=== PATIENT | female | born 1995 | race Caucasian/White ===

== ENCOUNTER 2024-12-10 12:40 | Outpatient (CLI) | payer OTHER, SELFPAY ==
--- NOTE | 2024-12-10 13:00 | CRLHL7_ITS ---
For Patients: As a result of the Cures Act, medical imaging exams and procedure reports are released immediately into your electronic medical record. You may view this report before your referring provider. If you have questions, please contact your health care provider. LMP: 10/06/2024. LIZY by LMP: 07/13/2025. . P: 2. Single. INDICATION: Dating and viability. FINDINGS: CR: 2.8 cm 9w 4d. LIZY: 07/11/2025. FHR: 178 bpm. Gestational sac: 3.7 cm, appears within normal limits. Yolk sac: 3.2 mm, appears within normal limits. Right ovary: Within normal limits 2.2 x 2.25 x 1.8 cm. Left ovary: Not visualized. IMPRESSION: 1. Single living intrauterine with sonographic gestational age 9 weeks 4 days and sonographic due date 07/11/2025. 2. Right inferior subchorionic hemorrhage measures 3.9 x 1.2 x 1.6 cm. Mahesh Booth M.D. Diagnostic Radiologist [email or web address] TIGIST/priyanka / bM/Dictated by: Mahesh Booth MD @ 12/10/2024 1:43:00 PM (Electronically Signed)
== END 2024-12-10 12:41 | disposition home or self-care (01) ==
LOC: US 12:45
PROVIDERS: Visit Provider Advanced Practice Midwife
DX: Z34.91 Encounter for supervision of normal pregnancy, unspecified, first trimester (principal); O20.9 Hemorrhage in early pregnancy, unspecified; Z3A.09 9 weeks gestation of pregnancy
CPT/HCPCS: 76817; 83021; 86592; 86703; 86704; 86706; 86762; 86787; 86803; 86850; 86900; 86901; 87086; 87340

== ENCOUNTER 2024-12-19 10:15 | Emergency (ER) | payer OTHER, SELFPAY ==
--- OUTSIDE RECORDS SUMMARY | 2024-12-19 10:17 | XMS_ITS ---
Author Organization [facility] Address [address] [place] [address] Care Team Providers Care Flying Squad Salesperson Name Role Phone Unavailable Unavailable Unavailable Surgery Details Not on file Complications Check Surgery Details section. Procedure Estimated Blood Loss Check Surgery Details section. Procedure Findings Check Surgery Details section. Procedure Specimens Taken Check Surgery Details section.
--- OUTSIDE RECORDS SUMMARY | 2024-12-19 10:17 | XMS_ITS | Continuity of Care Document ---
Author Organization [facility] Address [address] [address] [place] [address] Phone Care Team Providers Care Lead Java Programmer Name Role Phone Tre DIETRICH, Dnenis Unavailable Unavailable Allergies, Adverse Reactions, Alerts Substance Reaction Status Criticality No Known Allergies Active No Inform ation Medications Medication Instructions Dosage Effective Dates (start - stop) Status Comments norethindrone (contraceptive) 0.35 mg tablet take 1 tablet by oral route every day 1.00 tablet - Active Procedures Procedure Date Colonoscopy Flex; W/bx 1/mx Level Iv-surg Path Gross/micro Advance Directives Directive Yes / No Effective Date File Name No Information Encounters Encounter Description Practice Location Reason(s) For Visit Diagnoses Date Provider Providers Copied on Encounter [facility], [address] [address], [place], [place], [id number], [place] tel:[phone] [facility] No Information 2 Tre Recinosahim. [address] [facility], [facility] [address], [place], [place], [id number] , [place]. tel:[phone] [facility], [address] [address], [place], [place], [id number], [place] tel:[phone] [facility] Altered bowel habitsUnspecified abdominal painOther specified diseases of intestineChange in bowel habit 2 Tre Dennis. [address] [facility], [facility] [address], [place], [place], [id number] , [place]. tel:[phone] Referring Provider: Judi NEWTON R, [address], [place], [address]. tel:[phone] [facility], [address] [address], [place], [id number], [place] tel:[phone] [facility] No Information 2 Link MD Jay. [address] [facility], [address], [place], [id number] , [place]. tel:[phone] Family History Family Member Type Diagnosis Age At Onset No Information Immunizations Vaccine Date Status Comments tetanus toxoid, reduced diphtheria toxoid, and acellular pertussis vaccine, adsorbed administered Note: [facility] b i-directional interface ; Source: Other Registry Novel [id number], all formulations administered Note: [facility] bi-direct ional interface ; Source: Other Registry Influenza, seasonal, injectable administe red Note: [facility] bi- directional interface ; Source: Other Registry Payers Payer name Insurance type Covered democrat ID Authormarcosa deya(s) [employer] Of [facility] [id number] Social History Type Description Quantity Date Captured Comments Sex Female Smoking Status No Information Chief Complaint And Reason For Visit No Information Reason For Referral Reason For Referral No Information History Of Present Illness Encounter Date Complaint History Of Prese nt Illness No Information Functional Status Date Functional Assessmen t No Information Instructions Date Instruction Additional Infor chacorta Colon Cancer Prevention Related to Altered bowel habits Assessments Type Assessment Date No Information Patient Care Teams Name Effective Dates (start - stop) Status Members No Information
--- OUTSIDE RECORDS SUMMARY | 2024-12-19 10:17 | XMS_ITS | Referral Summary ---
Author Organization [facility] Address [address] [place] [address] Care Team Providers Care Jute Bag Clipper Name Role Phone Elsewhere, Pcp Primary Care Provider Unavailabl e Source Comments Patient records contain information from all sites at [facility]. For routine questions regarding patient records, call [phone] during business hours, M-F 8:00 AM - 5:00 PM Central Time. Record requests for emergency care only can be directed to [phone] at any time.[facility] Allergies No known active allergies Medications phenazopyridine (PYRIDIUM) 200 mg tablet Take 1 tablet (200 mg total) by mouth 3 (three) times a day as needed for painful urination. 6 tablet 06/13/2023 Active Active Problems Problem Noted Date Diagnosed Date Endometriosis 11/09/2021 Social History Tobacco Use Types Packs/Day Years Used Date Smoking Tobacco: Never Assessed PHQ-2 Answer Date Recorded PHQ-2 Score 0 06/10/2024 Depression Answer Date Recor ded PHQ-9 Total Score (max 27) 0 06/10 Dental Answer Date Recorded Dental: Regular Dentist Unknown 06/13/20 23 Comments Unknown Sex and Gender Information Value Date Recorded Sex Assigned at Not on file Legal Sex Female 8:42 AM CDT Gender Identity Not on file Sexual Orientation Not on file Last Filed Vital Signs Vital Sign Reading Time Taken Comments Blood Pressure 118/75 06/13/2023 9:34 PM CDT Pulse 72 06/13/2023 11:30 PM CDT Temperature 36.8 C (98.2 F) 06/13/2023 9:34 PM CDT Respiratory Rate 16 06/13/2023 11:30 PM CDT Oxygen Saturation 100% 06/13/2023 11:30 PM CDT Inhaled Oxygen Concentration - - Weight - - Height - - Body Mass Index - - Plan of Treatment Not on file Insurance [employer] Care Teams Jute Bag Clipper Relationship Specialty Start Date End Date Elsewhere, Pcp PCP - General Internal Medicine 06/13/23
--- OUTSIDE RECORDS SUMMARY | 2024-12-19 10:17 | XMS_ITS | Clinical Summary ---
Author Organization [facility] Address [place], [place] [address] Care Team Providers Care Automobile Radiator Mechanic Name Role Phone Judi Jordan Primary Care Provider Linda Joe CNM Unavailable [phone] Allergies No known active allergies Medications acetaminophen (TYLENOL) 325 mg tabletIndicatio ns: (normal spontaneous vaginal delivery) Take 2 Tablets (650 mg) by mouth every 6 hours if needed for Pain. Max acetaminophen dose: 4000mg in 24 hrs. 0 3 Active ibuprofen (ADVIL; MOTRIN) 600 mg tabletIndicatio ns: (normal spontaneous vaginal delivery) Take 1 Tablet (600 mg) by mouth every 6 hours if needed for Pain. Maximum of 3200 mg in 24 hours. 0 3 Active norethindrone, Contraceptive, (MICRONOR, 28,) 0.35 mg tabletIndicatio ns: control counseling Take 1 Tablet (0.35 mg) by mouth once daily. 84 Tablet 3 3 Active Active Problems Problem Noted Date Diagnosed Date Endometriosis 11/09/2021 Chronic midline low back pain without sciatica 1 01/10/2021 Chronic constipation 11/09/2021 Obesity (BMI 30.0-34.9) 12/30/2017 Resolved Problems Problem Noted Date Diagnosed Date Resolved Date (normal spontaneous vaginal delivery) 05/25/2023 07/09/2023 Single liveborn 05/25/2023 07/09/2023 Second degree perineal lacer ation during delivery 05/25/2023 07/09/2023 [facility] Preferences 04/14/2023 06/09/2023 Overview (05/21/2023): & Preferences Scheduled for post-dates IOL on 05/23 evening w/ Florian (Vianney Joe on-call). Partner: Portillo Klein'cecily support person(s): AUDIE sex: Girl! Goals / priorities: Hydrotherapy Fears / anxieties: Partner gets woozy during medical procedures Water : Declines GBS: IV in labor: Not immediately Labs at admission Prior to epidural Pain plan: epidural Help catch: Considering mirror Cut cord: Maybe Bertha Placenta: Considering keeping it Baby meds: Erithromycin: no Vitamin K: yes Hep B: no Other: _ Pre Coder: [facility] [place] Infant feeding: Breast/ pump and bottle Pump? _has Circumcision: NA control: Maternal PP immunizations: Supervision of high risk pre gnancy, antepartum 11/11/2022 06/09/2023 Overview (05/24/2023): [facility] - at [place] PLAN OF CARE: High Risk? YES - BMI>30 ~Transfer of care, records not available so uncertain about early GCT ~MPP consult placed for level II ultrasound -Return to primary provider for continued care. -No alterations in the delivery plan are necessary. -No medication changes are indicated. -No BPPs or NSTs suggested. -No further ultrasounds are necessary for the present indication 27 y.o. FOB: Portillo Other children: first sex: COURSE: - Final Estimated Date of Delivery: Estimated Date of Delivery: 05/15/23 by LMP and ultrasound - care transferred to [facility] at 13w4d - pre-gravid BMI 33, goal 11-20 pounds - early GDM screen: First visit at [facility] - aspirin 81 mg for pre-E risk: YES - maternal carrier screens: declined - genetic screens: declined - immunizations: flu [], tdap [], other [] - accepting of blood products: YES - hx any HSV: Denies Depression screening: Imagin. Early ultrasound 2. Anatomy Scan: Intrauterine at 19w 1d. presentation is Transverse, head to maternal left. EFW 297 grams, percentile: 63. Normal Deepest Vertical Pocket of amniotic fluid: 4.84 cm. Placental location: Posterior. There is no evidence of placenta previa. The cervical length is 4.5 cm. 3. Others? Labs: PENDING RECORDS - ABO/RH: _ - GC/CT: - HBG: _ - PLT: _ - HCV: _ - GCT: _ - GBS: _ Immunizations Name Administration Dates Next Due Influenza A (H1N1), Inactivated 10/24/2016 Influenza, IIV3 (Age >=3 years) 01/05/2007 MMR 05/26/2023 Tdap 03/31/2023,01/28/2017 Family History Medical History Relation Name Comments Good Health Brother x3 Good Health Father Lung cancer Maternal Grandmother Small C ell Lung cancer Maternal Uncle Asthma Mother Alcoholism Paternal Grandfather Cancer-breast No Family History Cancer-colon No Family History Cancer-ovarian No Family History Cancer-prostate No Family History Diabetes No Family History Relation Name Status Comments Brother x3 Alive Father Alive Maternal Aunt Maternal Grandfather Alive Maternal Grandmother Maternal Uncle Mother Alive Paternal Grandfather Alive Paternal Grandmother Alive Social History Tobacco Use Types Packs/Day Years Used Date Smoking Tobacco: Never Smokeless Tobacco: Never Tobacco Cessation:Counseling Given: Not Answered Alcohol Use Standard Drinks/Week Comments Not Currently 1 (1 standard drink = 0.6 oz pur e alcohol) PHQ-2 Answer Date Recorded PHQ-2 TOTAL SCORE 0 07/09/2023 Social Connections Answer Date Recorded Frequency of Communication with Friends and Fami ly Not on file 11/20/2021 Financial Resource Strain Answer Date R ecorded Difficulty of Paying Living Expenses Not on file 11/20/2021 Difficulty of Paying Living Expenses Not on file 11/20/2021 Comments No Sex and Gender Information Value Date Recorded Sex Assigned at Not on file Legal Sex Female 1:51 PM CDT Gender Identity Not on file Sexual Orientation Not on file 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 Not on file Not on file Not on file Obstetrics History Para Term AB IAB SAB Ectopic Multiple Livin g Live Births 1 1 1 0 0 0 0 0 0 1 1 Date Outcome GA Total Labor Labor/2nd/3rd Weight Sex Type Anes PTL Charlene A1 A5 Name Clin 2022 Term 41w 3d 28h 20m 24h 15m/4h 00m/0h 05m 3.99 kg (8 lb 12.7 oz) F VAGINA L ALICIA Epidur al Livin g 6 9 COLBE RT,BG BAILE Y Rooseveltfe ldt, Jeannette Amaral, CNM Complications:Category II: I ndeterminate Delivery Location:Hospital ( [facility] [address] L&D TRIAGE) Last Filed Vital Signs Vital Sign Reading Time Taken Comments Blood Pressure 126/60 07/09/2023 1:07 PM CDT Pulse 81 06/13/2023 8:03 PM CDT Temperature 36.6 C (97.9 F) 06/13/2023 8:03 PM CDT Respiratory Rate 17 06/13/2023 8:03 PM CDT Oxygen Saturation 99% 06/13/2023 8:03 PM CDT Inhaled Oxygen Concentration - - Weight 93.9 kg (207 lb) 07/09/2023 1:07 PM CDT Height 162.6 cm (5' 4) 02/10/2023 11:11 AM CDT Body Mass Index 35.53 02/10/2023 11:11 AM CDT Plan of Treatment Health Maintenance Due Date Last Done Comments Hepatitis C screening for age 18-79 2014 BMI (ht and wt on same day) for age 18+ 02/11/2024 02/10/2023, 10/29/2022, 11/09/2021, Additional history exists Pap test for age 21-65 06/07/2024 06/07/2021 Depression screening for age 12+ 07/09/2024 07/09/2023, 06/13/2023, 06/09/2023, Additional history exists COVID-19 vaccine series ( season) 2024 Influenza for age 9-49 07/25/2024 10/24/2016, 2006 Tetanus booster 03/31/2033 03/31/2023, 01/28/2017 HIV for age 15-65 Completed 10/07/2022 Tdap Completed 03/31/2023, 01/28/2017 Pneumococcal series for age 6-49 Aged Out No longer eligible based on patient's age to complete this topic Procedures Procedure Name Priority Date/Time Associated Diagnosis Comments HIV EXTERNAL Routine 10/07/2022 HM PAP SMEAR Routine 06/07/2021 from Last 3 Months or Most Recently Relevant to Health Maintenance Results * HIV EXTERNAL (10/07/2022) EXTERNAL HIV Negative 02 Blood BLOOD SPECIMEN / Unknown us Doctor Unknown LABORATORY Final Result 02 * HM PAP SMEAR [] (06/07/2021) CYTOLOGY Other (Other) 06/07/2021 Narrative Halina Diego M - 06/07/2021 NILM Linda Joe CNM HEALTH MAINT RESULTS Final Res ult from Last 3 Months or Most Recently Relevant to Health Maintenance Insurance [employer] Advance Directives * Full Code (Latest Code Status on File) Date Activated Date Inactivated Comments 05/23/2023 7:45 PM 05/27/2023 12:52 AM Question Answer Comments Code Status Discussion: Reviewed Preferences * Full Code Date Activated Date Inactivated Comments 02/04/2017 10:20 AM 02/04/2017 2:29 PM * Full Code Date Activated Date Inactivated Comments 02/04/2017 8:37 AM 02/04/2017 10:20 AM Care Teams Automobile Radiator Mechanic Relationship Specialty [place] [address] [place] [address] PCP - General Physician Solid Waste Analyst 03/26/22 Linda Joe CNM [address] [place] [address] Referring Provider Certified Nurse Fruit Inspector 11/12/22
--- OUTSIDE RECORDS SUMMARY | 2024-12-19 10:18 | XMS_ITS | Clinical Summary ---
Author Organization [facility] Address [address] [place] [address] Care Team Providers Care Impregnator Electrolytic Capacitors Name Role Phone Elsewhere, Pcp Primary Care Provider Unavailabl e Source Comments Patient records contain information from all sites at [facility]. For routine questions regarding patient records, call [phone] during business hours, M-F 8:00 AM - 5:00 PM Central Time. Record requests for emergency care only can be directed to [phone] at any time.[facility] Allergies No known active allergies Medications [...] Mass Index - - Plan of Treatment Health Maintenance Due Date Last Done Comments Cervical/Vaginal Cancer Screening 1996 HIV Screening 1996 Hepatitis C Screening 1996 Hepatitis B Vaccines (1 of 3 - 19+ 3-dose series) 2015 Depression Screening (Annual PHQ-2) 11/24/2023 COVID-19 Vaccine (1 - 2023-2 5 season) 2024 Influenza Vaccine (#1) 2024 01/05/2007 DTaP,Tdap,and Td Vaccines (3 - Td or Tdap) 03/31/2033 03/31/2023, 01/28/2017 HPV Vaccines Aged Out No longer eligi ble based on patient's age to complete this topic IPV Vaccines Aged Out No longer eligi ble based on patient's age to complete this topic Pneumococcal vaccine (0-49 years) Aged Out No longer eligible b ased on patient's age to complete this topic Insurance [employer] EM[employer] Care Teams Impregnator Electrolytic Capacitors Relationship Specialty Start Date End Date Elsewhere, Pcp PCP - General Internal Medicine 06/13/23
[2024-12-19 10:37] VITALS: BP 120/80; PULSE 97; RESP 20; TEMP 36.3; O2SAT 98; BMI 39.0
--- NOTE | 2024-12-19 10:57 | ED.GENADULT ---
HPI - General Adult General Chief complaint: Nausea/Vomiting Stated complaint: Can't keep food down x 3 days. 11 wks Time Seen by Provider: 12/19/24 10:48 Source: patient Mode of arrival: ambulatory Limitations: no limitations History of Present Illness HPI narrative: 29-year-old female at approximately 11 weeks gestation comes in today with 3 days of vomiting. She has had daily nausea with her thus far, has vomited handful of times. It has never been this consistent. She has not been able to keep anything down for the last 24 hours or so. She denies diarrhea or fevers. No chest or abdominal pain. No vaginal discharge. She is not short of breath, denies coughing. She denies any urinary symptoms. She does have a 1-year-old at home who also was vomiting this week. Related Data Previous Rx's ?Medication ?Instructions ?Recorded ondansetron HCl 4 mg tablet 4 mg PO Q8H #60 tabs 12/18/24 Allergies Allergy/AdvReac Type Severity Reaction Status Date / Time No Known Drug Allergies Allergy Verified 12/10/24 13:52 Review of Systems Status of ROS: Reports: 10 or more systems reviewed and unremarkable except as noted in History and below PFSH [facility] Medical History Endometriosis ?N80.9 - Endometriosis, unspecified (ICD-10) Chronic constipation ?K59.09 - Other constipation (ICD-10) Vaginal delivery ?O80 - Encounter for full-term uncomplicated delivery (ICD-10) Pilonidal cyst with abscess ?L05.01 - Pilonidal cyst with abscess (ICD-10) Surgical History Tracy teeth extracted ?K08.409 - Partial loss of teeth, unspecified cause, unspecified class (ICD-10) Family History Grandmother Lung cancer Uncle Lung cancer Grandfather Leukemia Social History Narrative: SOCIAL? ? Education: tech degree, ? ? 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 ? Partner: Portillo? 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 Lives with: Portillo and 1.5 year girl, Berger? ? Pets: none? ? Abuse: Denies past ? Unable to assess current, partner present? ? Special Diet: Denies? ? Ok with a blood transfusion: yes? ? Culture or shinto beliefs: denies? RISK FACTORS? ? Exercise Times/wk: walking daily in the summer, stationary bike when its cold and stretching and core excerises ? ? Depression/Anxiety: denies? ? Previous Treatments NA ? Therapy NA FILIPE: 0 PHQ 9: 0? ? Seat Belt Use: Routinely ? Smoking: Denies past/present? ? Alcohol/day: Denies while ? ?rare use once every 6 months Caffeine: one cup of coffee daily ? ? Drug Use: Denies past/present? What is your current living situation?: I presently have a place to live In the past 12 months, utilities in danger of being shut off: no In past 12 months, lack of transportation kept you from medical appts, meetings, work, or getting things needed for daily living: no How hard is it for you to pay for the very basics like food, housing, medical care, and heating: not very hard In the past 12 mos, have been you worried that your food would run out before you had money to buy more?: never true In the past 12 mos, the food you bought just didn't last and you didn't have money to buy more?: never true Smoking Status: Unknown if ever smoked Exam Narrative: Exam Narrative: Well-nourished well-developed patient in no acute distress. Alert and oriented. Answers questions appropriately. Mood and affect are appropriate. Thoughts are goal oriented and rational. No tangential or magical thinking noted. Patient speaks in full sentences without needing to catch her breath. She does not appear ill or toxic. HEENT: Normocephalic atraumatic. Pupils are equally round reactive to light. Extraocular muscles are intact. Conjunctivae are moist without any icterus noted. Moist mucous membranes. Posterior pharynx is normal. Neck is soft without any lymphadenopathy. Cardiovascular: Heart is regular rate and rhythm S1 and S2 are present without any murmurs. Lungs: Clear to auscultation bilaterally no wheezes rhonchi or rales are appreciated. Patient takes deep breaths without any discomfort. Abdomen: Soft and nontender nondistended with normal bowel sounds. Extremities: Bilateral lower extremities are without edema. Skin: Well perfused without any obvious rashes. Const: Vital Signs, click to edit/add: Vital Signs - 24 hr 12/19/24 10:37 12/19/24 12:19 Temperature 97.4 F L Pulse Rate [Pulse Oximeter] 97 78 Respiratory Rate 20 16 Blood Pressure [Ri ght Upper Arm] 120/80 126/82 Pulse Oximetry 98 99 Oxygen Delivery Me thod Room Air Room Air Course Course ED Course: Differential diagnosis includes gastroenteritis, vomiting in . IV is established and patient is treated with 1 L of normal saline and IV Zofran. Labs were drawn: CBC, chemistries, LFTs unremarkable. Triple swab negative. Vital Signs Vital signs: Initial Vital Signs Temperature 97.4 F L 12/19/24 10:37 Temperature Source Temporal Artery Scan 12/19/24 10:37 Pulse Rate 97 12/19/24 10:37 Respiratory Rate 20 12/19/24 10:37 Blood Pressure 120/80 12/19/24 10:37 Blood Pressure Mean 93 12/19/24 10:37 Pulse Oximetry 98 12/19/24 10:37 Oxygen Delivery Method Room Air 12/19/24 10:37 Vital Signs Temperature 97.4 F L 12/19/24 10:37 Pulse Rate 97 12/19/24 10:37 Respiratory Rate 20 12/19/24 10:37 Blood Pressure 120/80 12/19/24 10:37 Pulse Oximetry 98 12/19/24 10:37 Oxygen Delivery Method Room Air 12/19/24 10:37 Temperature 97.4 F L 12/19/24 10:37 Pulse Rate 78 12/19/24 12:19 Respiratory Rate 16 12/19/24 12:19 Blood Pressure 126/82 12/19/24 12:19 Pulse Oximetry 99 12/19/24 12:19 Oxygen Delivery Method Room Air 12/19/24 12:19 Medications Administered Medications: Discontinued Medications Generic Name Dose Route Start Last Admin Trade Name Freq PRN Reason Stop Dose Admin Sodium Chloride 1,000 mls @ 1,000 mls/hr 12/19/24 11:00 12/19/24 11:22 0.9 % Sodium Chloride 1000 Ml IV 12/19/24 11:59 1,000 mls/hr .Q1H PRASHANT Administration Ondansetron HCl 4 mg 12/19/24 10:53 12/19/24 11:22 Ondansetron 2 Mg/Ml Inj IVP 12/19/24 10:54 4 mg ONCE ONE Administration Medical Decision Making MDM Narrative Medical decision making narrative: 29-year-old female at 11 weeks gestation with vomiting for the last 3 days. Did not have any vomiting in the ED today. Patient has Zofran at home she that she is encouraged to take. Lab Data Lab results reviewed: Yes I reviewed the patient's lab results Labs: Lab Results 12/19/24 Range/Units 11:15 WBC 7.20 (4.50-11.00) K/uL RBC 4.86 (4.00-5.20) m/uL Hgb 13.2 (12.0-16.0) gm/dL Hct 39.4 (33.0-51.0) % MCV 81 (80-100) fL MCH 27 (26-34) pg MCHC 34 (32-36) gm/dL RDW Coeff of Kevin 13.4 (11.5-15.5) % Plt Count 233 (140-440) K/uL Neut % (Auto) 82.5 H (42.0-72.0) % Lymph % (Auto) 11.1 L (20-44) % [place] % (Auto) 5.8 (0.0-11.0) % Eos % (Auto) 0.4 (0.0-7.0) % Baso % (Auto) 0.1 (0.0-3.0) % Neut # (Auto) 5.90 (1.7-7.0) K/uL Lymph # (Auto) 0.80 L (0.90-2.90) K/uL [place] # (Auto) 0.40 (0.00-0.90) K/UL Eos # (Auto) 0.03 (0.00-0.50) K/uL Baso # (Auto) 0.01 (0.00-0.30) K/uL Abs Immat Gran (auto) 0.01 (0.00-0.30) K/uL Imm/Tot Granulo (auto) 0.1 % Sodium 134 L (135-149) mmol/L Potassium 3.8 (3.6-5.1) mmol/L Chloride 102 (96-114) mmol/L Carbon Dioxide 21 (20-32) mmol/L Anion Gap 11 (7-15) mEq/L BUN 9 (5-24) mg/dL Creatinine 0.5 (0.5-1.5) mg/dL Estimated Creat Clear 138.57 Estimated GFR 131 ml/min Glucose 102 (60-115) mg/dL Calcium 8.5 (8.4-10.6) mg/dL Total Bilirubin 0.3 (0.1-1.5) mg/dL Direct Bilirubin 0.2 (0.0-0.5) mg/dL AST 25 (12-35) U/L ALT 28 (4-35) U/L Alkaline Phosphatase 58 (40-150) U/L Total Protein 7.0 (6.0-8.3) g/dL Albumin 4.2 (3.3-5.0) g/dL SARS-CoV-2 (PCR) Negative SARS-CoV-2 (Negative) Influenza Type A (PCR) Negative PCR FLU A (Negative) Influenza Type B (PCR) Negative PCR FLU B (Negative) Discharge Plan Discharge Clinical Impression: Vomiting affecting Patient Disposition: Home, Self-Care Condition: Stable Additional Instructions: Do your best to stay well hydrated by taking small sips of fluids frequently throughout the day. Use Zofran as needed. If vomiting continues, follow-up with your OBGYN. If you cannot keep anything down despite Zofran, return to the emergency department. Prescriptions: No Action ondansetron HCl 4 mg tablet 4 mg PO Q8H Qty: 60 0RF Follow Up/Referrals: Provider,Not a Local [Primary Care Provider] - Stand Alone Forms: MAKO Surgical Info Instructions
--- OUTSIDE RECORDS SUMMARY | 2024-12-19 11:10 | XMS_ITS | Continuity of Care Document ---
Author Organization [facility] Address [address] [address] [place] [address] Phone Care Team Providers Care Resource Recovery Specialist Name Role Phone Tre DIETRICH, Dennis Unavailable Unavailable Allergies, Adverse Reactions, Alerts Substance [...] Diagnoses Date Provider Providers Copied on Encounter [facility], [address] [address], [place], [place], [id number], [place] tel:[phone] [facility] No Information 2 Tre Recinosahim. [address] [facility], [facility] [address], [place], [place], [id number] , [place]. tel:[phone] [facility], [address] [address], [place], [place], [id number], [place] tel:[phone] [facility] Altered bowel habitsUnspecified abdominal painOther specified diseases of intestineChange in bowel habit 2 Tre Dennis. [address] [facility], [facility] [address], [place], [place], [id number] , [place]. tel:[phone] Referring Provider: Judi NEWTON R, [address], [place], [address]. tel:[phone] [facility], [address] [address], [place], [id number], [place] tel:[phone] [facility] No Information 2 Link MD Jay. [address] [facility], [address], [place], [id number] , [place]. tel:[phone] Family History Family Member Type Diagnosis Age At Onset No Information Immunizations Vaccine Date Status Comments tetanus toxoid, reduced diphtheria toxoid, and acellular pertussis vaccine, adsorbed administered Note: [facility] b i-directional interface ; Source: Other Registry Novel [id number], all formulations administered Note: [facility] bi-direct ional interface ; Source: Other Registry Influenza, seasonal, injectable administe red Note: [facility] bi- directional interface ; Source: Other Registry Payers Payer name Insurance type Covered republican ID Authormarcosa deya(s) Blue [employer] Of [facility] [id number] Social History Type Description Quantity Date Captured [...]
--- OUTSIDE RECORDS SUMMARY | 2024-12-19 11:11 | XMS_ITS | Clinical Summary ---
Author Organization [facility] Address [address] [place] [address] Care Team Providers Care Lithographic Proofer Apprentice Name Role Phone Elsewhere, Pcp Primary Care Provider Unavailabl e Source Comments Patient records contain information from all sites at [facility]. For routine questions regarding patient records, call [phone] during business hours, M-F 8:00 AM - 5:00 PM Central Time. Record requests for emergency care only can be directed to [phone] at any time.[facility] Allergies No known active allergies Medications phenazopyridine [...] patient's age to complete this topic Insurance [employer] EMPL[employer]EE Care Teams Lithographic Proofer Apprentice Relationship Specialty Start Date End Date Elsewhere, Pcp PCP - General Internal Medicine 06/13/23
--- OUTSIDE RECORDS SUMMARY | 2024-12-19 11:11 | XMS_ITS | Clinical Summary ---
Author Organization [facility] Address [place], [place] [address] Care Team Providers Care Extrusion Process Operator Name Role Phone Judi Jordan Primary Care Provider Linda Joe CNM Unavailable [phone] Allergies No known active allergies Medications [...] perineal lacer ation during delivery 05/25/2023 07/09/2023 [facility] Preferences 04/14/2023 06/09/2023 Overview (05/21/2023): & Preferences [...] K: yes Hep B: no Other: _ [employer] Offbearer: [facility] Infant feeding: Breast/ pump and bottle Pump? _has Circumcision: NA control: Maternal PP immunizations: Supervision of high risk pre gnancy, antepartum 11/11/2022 06/09/2023 Overview (05/24/2023): [facility] - at [place] PLAN OF CARE: High Risk? 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 Not on file Not [...] Complications:Category II: I ndeterminate Delivery Location:Hospital ( [facility] [address] L[facility]D TRIAGE) Last Filed Vital Signs [...] Most Recently Relevant to Health Maintenance Insurance [employer] Advance Directives * Full Code (Latest Code Status on File) Date Activated Date Inactivated Comments 05/23/2023 7:45 PM 05/27/2023 12:52 AM Question Answer Comments Code Status Discussion: Reviewed Preferences * Full Code Date Activated Date Inactivated Comments 02/04/2017 10:20 AM 02/04/2017 2:29 PM * Full Code Date Activated Date Inactivated Comments 02/04/2017 8:37 AM 02/04/2017 10:20 AM Care Teams Extrusion Process Operator Relationship Specialty [place] [address] [place] [address] PCP - General Physician Airport Ramp Attendant 03/26/22 Linda Joe CNM [address] [place] [address] Referring Provider Certified Nurse Drill Setup Operator 11/12/22
--- OUTSIDE RECORDS SUMMARY | 2024-12-19 11:11 | XMS_ITS ---
Author Organization [facility] Address [address] [place] [address] Care Team Providers Care Racker Octave Board Name Role Phone Unavailable Unavailable Unavailable Surgery Details Not on file Complications Check Surgery Details section. Procedure Estimated Blood Loss Check Surgery Details section. Procedure Findings Check Surgery Details section. Procedure Specimens Taken Check Surgery Details section.
--- OUTSIDE RECORDS SUMMARY | 2024-12-19 11:11 | XMS_ITS | Referral Summary ---
Author Organization [facility] Address [address] [place] [address] Care Team Providers Care Silver Steward Name Role Phone Elsewhere, Pcp Primary Care Provider Unavailabl e Source Comments Patient records contain information from all sites at [facility]. For routine questions regarding patient records, call [phone] during business hours, M-F 8:00 AM - 5:00 PM Central Time. Record requests for emergency care only can be directed to [phone] at any time.[facility] Allergies No known active allergies Medications phenazopyridine [...] Plan of Treatment Not on file Insurance [employer] EMPLOYEE Care Teams Silver Steward Relationship Specialty Start Date End Date Elsewhere, Pcp PCP - General Internal Medicine 06/13/23
[2024-12-19] MEDS: 0.9 % SODIUM CHLORIDE 1000 ml 1,000 ML IV (11:22)
[2024-12-19] MEDS: ONDANSETRON 2 MG/ML inj 4 MG IVP (11:22)
[2024-12-19 11:25] LABS: Basophils Absolute Auto 0.01 K/uL (0.00-0.30); Basophils Percent Auto 0.1 % (0.0-3.0); Eosinophils Absolute Auto 0.03 K/uL (0.00-0.50); Eosinophils Percent Auto 0.4 % (0.0-7.0); Hematocrit 39.4 % (33.0-51.0); Hemoglobin* 13.2 gm/dL (12.0-16.0); Immature Granulocytes Abs Auto 0.01 K/uL (0.00-0.30); Immature Granulocytes Pct Auto 0.1 %; Lymphocytes Percent Auto 11.1 % (20-44); Mean Corpuscular HGB Conc 34 gm/dL (32-36); Mean Corpuscular Hemoglobin 27 pg (26-34); Mean Corpuscular Volume 81 fL (80-100); Monocytes Percent Auto 5.8 % (0.0-11.0); Neutrophils Percent Auto 82.5 % (42.0-72.0); Platelet Count* 233 K/uL (140-440); RDW Coefficient of Variation % 13.4 % (11.5-15.5); Red Blood Count 4.86 m/uL (4.00-5.20)
[2024-12-19 11:35] LABS: Slide Review Reflex No
[2024-12-19 11:38] LABS: Albumin* 4.2 g/dL (3.3-5.0); Chloride* 102 mmol/L (96-114)
[2024-12-19 11:39] LABS: Potassium* 3.8 mmol/L (3.6-5.1); Sodium* 134 mmol/L (135-149)
[2024-12-19 11:41] LABS: Anion Gap 11 mEq/L (7-15); Aspartate Amino Transferase* 25 U/L (12-35); Bilirubin Direct* 0.2 mg/dL (0.0-0.5); Bilirubin Total* 0.3 mg/dL (0.1-1.5); Blood Urea Nitrogen* 9 mg/dL (5-24); Carbon Dioxide* 21 mmol/L (20-32); Creatinine* 0.5 mg/dL (0.5-1.5); Est. Creatinine Clearance* 138.57; Estimated Glomerular Filt Rate 131 ml/min
[2024-12-19 11:42] LABS: Alanine Aminotransferase* 28 U/L (4-35); Alkaline Phosphatase* 58 U/L (40-150); Calcium* 8.5 mg/dL (8.4-10.6); Glucose* 102 mg/dL (60-115)
[2024-12-19 12:04] LABS: PCR FLU A Negative PCR FLU A (Negative); PCR FLU B Negative PCR FLU B (Negative); SARS PCR* Negative SARS-CoV-2 (Negative)
[2024-12-19 12:19] VITALS: BP 126/82; PULSE 78; RESP 16; O2SAT 99
== END 2024-12-19 12:28 | disposition home or self-care (01) ==
PROVIDERS: Emergency Provider Family Medicine
DX: O21.9 Vomiting of pregnancy, unspecified (principal); Z3A.11 11 weeks gestation of pregnancy
CPT/HCPCS: 36415; 80048; 80076; 85025; 87631; 96374; 99284; J2405; J7030

== ENCOUNTER 2025-01-16 09:32 | Outpatient (CLI) | payer OTHER, SELFPAY | END 2025-01-16 09:33 | disposition home or self-care (01) | LOC: NFLDREF 01-19 01:12 | PROVIDERS: Visit Provider Physician Assistant | DX: R30.0 Dysuria (principal); N39.0 Urinary tract infection, site not specified | CPT/HCPCS: 87086 ==

== ENCOUNTER 2025-02-24 10:54 | Outpatient (CLI) | payer OTHER, SELFPAY ==
--- NOTE | 2025-02-24 11:15 | CRLHL7_ITS ---
For Patients: As a result of the Century Cures Act, medical imaging exams and procedure reports are released immediately into your electronic medical record. You may view this report before your referring provider. If you have questions, please contact your health care provider. OB ULTRASOUND GREATER THAN 14 WEEKS, 02/24/2025 CLINICAL HISTORY: screen. COMPARISON: None. TECHNIQUE: Real time jimenez scale imaging of the fetus was performed transabdominal. FINDINGS: LIZY by US: 07/13/2025. GA: 20 weeks 1 day. POSITION: Vertex. PLACENTA/CORD: Anterior. Placenta tip to internal os: 7.2 cm. Umbilical Cord: 3 vessel. Placental Insertion: Central. CERVIX: Visualized. Technique: TA. Length of closed cervix: 3.6 cm. AMNIOTIC FLUID: 3.0 cm SDP. OBSERVED STRUCTURES: Calvarium/Spine: Cerebellum 4.6 cm, 19 weeks 6 days. Cisterna Magna 5.3 mm. Nuchal Fold 5.3 mm. Lateral Ventricle 6.3 mm. CSP Midline Falx Choroid Plexus Spine ABDOMEN: Stomach Abd Cord Insert Urinary Bladder Kidneys Diaphragm FACE: Orbital View Profile LIMBS: Upper Extremities Lower Extremities Hands Feet VASCULAR: RVOT BIOMETRY: BPD: 4.6 cm, 19 weeks 6 days. 36% HC: 17.9 cm, 20 weeks 2 days. 50% AC: 16.1 cm, 21 weeks 1 day. 78% FL: 3.7 cm, 21 weeks 6 days. 91% Heart Rate: 161 bpm. Age by this US: 20 weeks 6 days. LIZY by this US: 07/08/2025. EFW: 414 grams, 0 lb 15 oz. Percentile by LIZY: 96% IMPRESSION: 1. Sonographic gestational age 20 weeks 6 days and sonographic due date 07/08/2025. Sonographic age 5 days ahead of the clinical age. 2. Estimated weight 96th percentile. Abdominal circumference 78th percentile. 3. Incomplete visualization of the nose, lips, four chamber heart, LVOT, 3 vessel view and 3 vessel trachea view. Remainder of the anatomic survey is normal. Short term followup advised. Mahesh Booth M.D. Diagnostic Radiologist [email or web address] Transcribed: 9:38 am DW/Dictated by: Mahesh Booth MD @ 02/25/2025 6:52:00 AM (Electronically Signed)
== END 2025-02-24 10:55 | disposition home or self-care (01) ==
LOC: US 10:55
PROVIDERS: Visit Provider Advanced Practice Midwife
DX: Z34.92 Encounter for supervision of normal pregnancy, unspecified, second trimester (principal); O35.AXX0 Maternal care for other (suspected) fetal abnormality and damage, fetal facial anomalies, not applicable or unspecified; O35.BXX0 Maternal care for other (suspected) fetal abnormality and damage, fetal cardiac anomalies, not applicable or unspecified; Z3A.20 20 weeks gestation of pregnancy
CPT/HCPCS: 76805

== ENCOUNTER 2025-03-11 11:00 | Outpatient (CLI) | payer OTHER, SELFPAY ==
--- NOTE | 2025-03-11 11:15 | CRLHL7_ITS ---
For Patients: As a result of the Century Cures Act, medical imaging exams and procedure reports are released immediately into your electronic medical record. You may view this report before your referring provider. If you have questions, please contact your health care provider. OB ULTRASOUND FOLLOW-UP MISSING VIEWS LIZY by LMP: 07/13/2025. GA: 22 w, 2 d. Single. Comparison: 02/24/2025. INDICATION: Follow-up missing views, nose/lips and heart views. TECHNIQUE: Real time jimenez scale imaging of the fetus was performed. Transabdominal. CERVIX: Not visualized. POSITIONING: Breech. AMNIOTIC FLUID: 4.1 cm. SDP (N: greater than 2 x 1 cm) PLACENTA: Technique: Transabdominal. PLACENTA POSITION: Anterior. DOPPLER: heart rate: 149 bpm. IMPRESSION: Normal nose, lips, four-chamber heart, LVOT, three-vessel view and three-vessel trachea view. RVOT also normal as is the bladder and stomach. Mahesh Booth M.D. Diagnostic Radiologist [email or web address] SP/Dictated by: Mahesh Booth MD @ 03/11/2025 5:39:00 PM (Electronically Signed)
== END 2025-03-11 11:01 | disposition home or self-care (01) ==
LOC: US 11:01
PROVIDERS: Visit Provider Advanced Practice Midwife
DX: Z36.2 Encounter for other antenatal screening follow-up (principal); O35.AXX0 Maternal care for other (suspected) fetal abnormality and damage, fetal facial anomalies, not applicable or unspecified; O35.BXX0 Maternal care for other (suspected) fetal abnormality and damage, fetal cardiac anomalies, not applicable or unspecified; O32.1XX0 Maternal care for breech presentation, not applicable or unspecified; Z3A.22 22 weeks gestation of pregnancy
CPT/HCPCS: 76816

== ENCOUNTER 2025-04-15 09:33 | Outpatient (CLI) | payer OTHER, SELFPAY | END 2025-04-15 09:34 | disposition home or self-care (01) | LOC: NFLDREF 04-26 06:55 | PROVIDERS: Visit Provider Advanced Practice Midwife | DX: Z34.82 Encounter for supervision of other normal pregnancy, second trimester (principal) | CPT/HCPCS: 86592 ==

== ENCOUNTER 2025-04-22 08:01 | Outpatient (CLI) | payer OTHER, SELFPAY | END 2025-04-22 08:02 | disposition home or self-care (01) | LOC: NFLDREF 04-27 00:22 | PROVIDERS: Visit Provider Midwife | DX: O99.810 Abnormal glucose complicating pregnancy (principal); Z3A.27 27 weeks gestation of pregnancy | CPT/HCPCS: 82951; 82952 ==

== ENCOUNTER 2025-05-16 10:00 | Outpatient (CLI) | payer OTHER, SELFPAY ==
--- NOTE | 2025-05-16 10:15 | CRLHL7_ITS ---
For Patients: As a result of the Cures Act, medical imaging exams and procedure reports are released immediately into your electronic medical record. You may view this report before your referring provider. If you have questions, please contact your health care provider. OB ULTRASOUND FOLLOW-UP/LIMITED, 05/16/2025 CLINICAL HISTORY: High BMI. COMPARISON: 03/11/2025, 02/24/2025, 12/10/2024. TECHNIQUE: Real time jimenez scale imaging of the fetus was performed. Transabdominal imaging performed. FINDINGS: LMP: 10/06/2024. LIZY by LMP: 07/13/2025. GA: 31 weeks 5 days. Cervix: Visualized. Positioning: Transverse, right. Amniotic Fluid: 4.0 cm SDP. Placenta: Technique: TA. Placenta Position: Anterior. Dopplers: heart rate: 138 bpm. BIOMETRY: BPD: 8.2 cm, 33 weeks 1 day. 80% HC: 31.4 cm, 35 weeks 1 day. 93% AC: 29.1 cm, 33 weeks 1 day. 85% FL: 5.8 cm, 30 weeks 3 days. 10% FL/AC Ratio: 20.0% HC/AC Ratio: 1.1 cm. EFW: 1995 grams, 4 lb 6 oz. age by this US: 33 weeks 0 days. LIZY by this US: 07/04/2025. Percentile by LIZY: 66.3% IMPRESSION: 1. Sonographic gestational age 33 weeks 0 days and sonographic due date 07/04/2025. Sonographic age 9 days ahead of the clinical age. 2. Estimated weight 66th percentile. Abdominal circumference 85th percentile. Mahesh Booth M.D. Diagnostic Radiologist [email or web address] Transcribed: 11:47 am DW/Dictated by: Mahesh Booth MD @ 05/16/2025 11:06:00 AM (Electronically Signed)
== END 2025-05-16 10:01 | disposition home or self-care (01) ==
LOC: US 10:01
PROVIDERS: Visit Provider Midwife
DX: O99.213 Obesity complicating pregnancy, third trimester (principal); Z68.39 Body mass index [BMI] 39.0-39.9, adult; O36.63X0 Maternal care for excessive fetal growth, third trimester, not applicable or unspecified; Z3A.31 31 weeks gestation of pregnancy
CPT/HCPCS: 76816

== ENCOUNTER 2025-06-17 11:40 | Outpatient (CLI) | payer OTHER, SELFPAY ==
[2025-06-18 12:57] LABS: Strep B DNA Probe Negative (Negative)
[2025-06-18 13:43] LABS: Strep B Susceptibility Needed? No
== END 2025-06-17 11:41 | disposition home or self-care (01) ==
PROVIDERS: Visit Provider Midwife
DX: Z34.83 Encounter for supervision of other normal pregnancy, third trimester (principal)
CPT/HCPCS: 87081; 87653

== ENCOUNTER 2025-07-01 09:52 | Outpatient (CLI) | payer OTHER, SELFPAY ==
--- NOTE | 2025-07-01 10:00 | CRLHL7_ITS ---
For Patients: As a result of the Cures Act, medical imaging exams and procedure reports are released immediately into your electronic medical record. You may view this report before your referring provider. If you have questions, please contact your health care provider. OBSTETRICAL ULTRASOUND ??? BIOPHYSICAL PROFILE, 07/01/2025 INDICATION: BMI. Supervision of high-risk . CLINICAL HISTORY: LIZY by LMP: 07/13/2025 Gestational Age: 38 weeks 2 days COMPARISON: 05/15/2025, 03/11/2025, 02/24/2025 TECHNIQUE: Real-time jimenez-scale transabdominal imaging of the fetus was performed. FINDINGS: Fetus: Single Cervix: Not visualized positioning: Vertex Amniotic Fluid: 7.2 cm SDP BIOPHYSICAL PROFILE: Gross body movements: 2 tone: 2 Respiratory activity: 2 Amniotic fluid SDP: 2 Total score: 8 Placenta technique: Transabdominal Placenta position: Anterior heart rate: 144 bpm IMPRESSION: Normal biophysical profile score of 8/8. MAHESH OSPINA M.D. Diagnostic Radiologist [email or web address] Transcribed: 11:[address]/Dictated by: Mahesh Ospina MD @ 07/01/2025 10:55:00 AM (Electronically Signed)
== END 2025-07-01 09:53 | disposition home or self-care (01) ==
LOC: US 09:53
PROVIDERS: Visit Provider Midwife
DX: O09.93 Supervision of high risk pregnancy, unspecified, third trimester (principal); Z3A.38 38 weeks gestation of pregnancy
CPT/HCPCS: 76819

== ENCOUNTER 2025-07-08 15:12 | Outpatient (CLI) | payer OTHER, SELFPAY | END 2025-07-08 15:13 | disposition home or self-care (01) | PROVIDERS: Visit Provider Advanced Practice Midwife | DX: O99.213 Obesity complicating pregnancy, third trimester (principal); E66.9 Obesity, unspecified; Z3A.39 39 weeks gestation of pregnancy | CPT/HCPCS: 82239; 84450; 84460 ==

== ENCOUNTER 2025-07-16 18:59 | Inpatient (IN) | payer OTHER, SELFPAY ==
[2025-07-16] VITALS (22 sets, daily range): BP systolic 97–137; BP diastolic 57–85; PULSE 85–229; RESP 16–22; TEMP 36.3–36.8; O2SAT 80–100; BMI 42.1
--- NOTE | 2025-07-16 19:08 | P.LDBA_ITS ---
Subjective History of Present Illness Narrative: Patient is being admitted to Labor and Delivery for spontaneous labor. She is a 29 year old at 40 3/7 weeks gestation. Her full history and physical was dictated by Alberto Turcios CNM on 06/24/2025. Please see this for details. Specific Issues/Plans `Partner: Levar Berger-almost 2 (girl). It is a boy! H&P:? by Keely Turcios CNM on 06/24/25 # Obesity, Pre- BMI 35-39.9? Weekly testing starting at 37 weeks?-form turned in for scheduling ? Consider growth US at 32 weeks?EFW 66%, AC 85% ? Delivery recommended: elective delivery considered at >39 0/7 weeks.?? #?Hx PPH last delivery, no amount in delivery note given Pitocin and Methergine after delivery, and st cath? # Hep B not immune Uncertain if she was vaccinated, will consider series . Discussed at 01/07 visit # abnormal glucose- failed one hour 189. passed 3 hour with only one abnormal value; 93, 184, 135, 118 Enc increase activity, decrease portions, balance carbs and protein # Itching with rash/hives at 39 weeks-resolved (pt now feels it was r/t a body wash) Labs: WNL with mildly elevated AST 46, consider repeating next visit, bile acid 6-declines repeat Imaging:??? Anatomy US: 02/24/2025 IMPRESSION: 1. Sonographic gestational age 20 weeks 6 days and sonographic due date 07/08/2025. Sonographic age 5 days ahead of the clinical age. 2. Estimated weight 96th percentile. Abdominal circumference 78th percentile. 3. Incomplete visualization of the nose, lips, four chamber heart, LVOT, 3 vessel view and 3 vessel trachea view. Remainder of the anatomic survey is normal. Short term followup advised. Follow-up 03/11/25 IMPRESSION: Normal nose, lips, four-chamber heart, LVOT, three-vessel view and three-vessel trachea view. RVOT also normal as is the bladder and stomach. Growth US 05/16/2025: IMPRESSION: 1. Sonographic gestational age 33 weeks 0 days and sonographic due date 07/04/2025. Sonographic age 9 days ahead of the clinical age. 2. Estimated weight 66th percentile. Abdominal circumference 85th percentile. COVID: declines? Flu: declines? Tdap: 04/29/2025? RSV: out of season? 32 week mental health: 04/29/2025? Last pap:? 06/07/24 NILM?due at 6 wk PP OB - Problem Based A/P Additional Plan (1) Supervision of high risk , antepartum: Status: Acute (2) Obesity affecting , antepartum: Status: Acute (3) History of hemorrhage: Status: Acute Plan ASSESSMENT:?? 29 at 40 3/7 weeks gestation?? complicated by:??obesity, itchy rash Labor type:Spontaneous, Active labor?? Category 1 FHR pattern.??? Labor complicated by: none?, hx PP hemorrhage noted? GBS negative ?? PLAN:?? 1. Routine intrapartum cares as ordered. Continue with expectant management?? 2. Monitoring per policy, intermittent?? 3. Planning unmedicated . Desires water . Consent signed. Hep C negative. Candidate for analgesia of choice.??? 4. Patient encouraged to reposition and ambulate to promote physiologic labor and .?? 5. Planning active management with Methergine in the room. 6. Anticipate ? OB Exam Physical Exam Vital signs: Temp Pulse Resp BP Pulse Ox 98.2 F 93 20 137/85 100 07/16/25 18:40 07/16/25 18:03 07/16/25 18:40 07/16/25 18:03 07/16/25 19:07 Narrative: Vitals Reviewed Constitutional:? Alert and oriented x3 HEENT:? Normocephalic, atraumatic Neck:? Supple Lungs:? Clear to auscultation bilaterally Heart:? Regular rate and rhythm, no murmur, rub or gallop Abdomen:? Soft, nontender, and gravid. Vertex by Jc's, confirmed with cervical exam. Extremities:? No edema or erythema Cervix: 6 cm/90%/0 station/per nursing NST: 135 bpm/moderate variability/accelerations absent/decelerations absent /contractions q 4 min x 100sec
[2025-07-16 19:40] LABS: Hematocrit 36.2 % (33.0-51.0); Hemoglobin* 11.9 gm/dL (12.0-16.0); Immature Granulocytes Pct Auto 0.5 %; Mean Corpuscular HGB Conc 33 gm/dL (32-36); Mean Corpuscular Hemoglobin 26 pg (26-34); Mean Corpuscular Volume 79 fL (80-100); RDW Coefficient of Variation % 14.1 % (11.5-15.5); Red Blood Count 4.56 m/uL (4.00-5.20); White Blood Count* 11.86 K/uL (4.50-11.00)
[2025-07-16 19:46] LABS: Immature Granulocytes Abs Auto 0.10 K/uL (0.00-0.30); Lymphocytes Absolute Auto 1.90 K/uL (0.90-2.90)
[2025-07-16 19:47] LABS: Slide Review Reflex No
[2025-07-16 20:50] LABS: INR 0.93 (0.91-1.10); Prothrombin Time 13.2 Seconds
[2025-07-16] MEDS: OXYTOCIN 30 unit/500 ML in NS 30 UNIT/500 ML BAG 300 UNIT IVPB (21:30)
[2025-07-16] MEDS: METHYLERGONOVINE MALEATE 0.2 MG/ML INJ IM (21:33)
[2025-07-16] MEDS: LIDOCAINE 1 % PF 30 ML INJECTION (21:41)
--- NOTE | 2025-07-16 22:12 | W.PM.OBVAGDE ---
OB Procedure Vag Delivery Mother Details Mother Details: The patient is a 29 year-old, 2, Para 1, admitted on 07/16/25 at 40 3/7 weeks gestation. Admission Date: 07/16/25 Additional Details Amniotic Membrane Status: SROM Amniotic Membrane Rupture Date: 07/16/25 Amniotic Membrane Rupture Time: 19:39 Amniotic Membrane Fluid Description: Clear Analgesia/Anesthesia Type: None, Local (for repair) and Fentanyl (for repair) Waterbirth: Yes Pitcoin: Yes Intrapartal Events: None Labor Onset: 18:41 Complete: 20:55 (assumed with spontaneous pushing) Pushin:55 Heart: heart tones during second stage were category I checked intermittently with normal baseline, intermittent audible increases. No audible decreases. Delivery Details Delivery Date: 07/16/25 Delivery Time: 21:20 Route of delivery: Gender: Male Infant Viability: Alive; Heart Rate Present Position at Delivery: OA Delivery Details: Patient was admitted for spontaneous labor and progressed normally. SROM noted at 1939 with clear fluid. Patient was complete at 2054 and pushing at 2054. of a viable male at 2119 in OA in the tub. Vertex delivered OA. No nuchal cord. Head birthed under water. With delay of shoulder coming under pubic bone with next push, pt asked to stand and raise right foot onto shelf of tub. With next push, baby's shoulder slowly released under the pubic bone. Body then delivered easily and without incident. passed to mothers abdomen. Bulb suctioning and stimulation prompted a cry within a minute, but further stimulation was needed to keep him crying. He was slowly transitioning, but was not vigorous until approximately 2 min of age. Cord was clamped and cut at > 5 minutes. APGARS were 6 at one minute and 8 at five minutes respectively. Intact placenta with a 3 vessel cord delivered spontaneously at 2127. Fundus firm, but moderate amount of clots with vaginal sweep along with small amount of amniotic membrane. Pitocin had already been started at that point, so Methergine given. EBL in tub 250 + QBL 593. More frequent fundal checks in recovery requested. 2nd degree laceration mL identified and repaired in typical fashion. Mother and baby stable; mother plans to breastfeed. weight pending.?Suspect LGA. 1 Minute Interval Total Score: 6 5 Minute Interval Total Score: 8 Additional Details Shoulder Dystocia: Yes (50 sec, relieved with position change) Placenta Delivery Time: 21:28 Placental Delivery Description: Spontaneous Delivery repair: Vicryl Procedure Done: Global Blood Loss: 843 Laceration: Perineal - 2nd Degree Episiotomy Description: None Blood Loss Measurement Type: QBL (593 QBL + 250 EBL) Bakri Used: No Sponge/Need Count Correct: Yes Cord Vessel Description: 3 Vessels Event Summary Status: Mother and infant were stable after delivery. Disposition: floor
[2025-07-16] MEDS: LACTATED RINGERS 1000 ML 1,000 ML IV (22:16)
[2025-07-16] MEDS: IBUPROFEN 600 MG TABLET PO (22:26)
[2025-07-17] MEDS: ACETAMINOPHEN 500 MG TABLET 1000 MG PO ×4 (00:50→21:57)
[2025-07-17 02:27] VITALS: BP 109/73; PULSE 112; RESP 20; TEMP 36.5; O2SAT 96
[2025-07-17] MEDS: IBUPROFEN 600 MG TABLET PO ×3 (05:20→18:07)
[2025-07-17 06:02] LABS: Hemoglobin* 9.5 gm/dL (12.0-16.0)
[2025-07-17 06:30] VITALS: BP 100/68; PULSE 101; RESP 20; O2SAT 98
[2025-07-17] MEDS: DOCUSATE SODIUM 100 MG CAPSULE PO (08:15)
[2025-07-17 08:31] VITALS: BP 112/81; PULSE 100; RESP 12; TEMP 36.7; O2SAT 97
[2025-07-17 11:56] VITALS: BP 107/74; PULSE 90; RESP 12; TEMP 36.7; O2SAT 97
[2025-07-17 16:12] VITALS: BP 93/65; PULSE 101; RESP 12; TEMP 36.7; O2SAT 98
--- NOTE | 2025-07-17 18:20 | P.OBPN_ITS ---
OB - PN:Subj Subjective Date Seen: 07/17/25 Narrative: Bertha is a 29 year old who was admitted for XIMENA and proceeded to have a vaginal with a 2nd degree laceration that was repaired.Labor was complicated by a 50 second shoulder dystocia that was relieved with a position change. The patient feels well.? The pain is well controlled with current medications.? She has no new complaints.? Urinary output is adequate and she is voiding without difficulty.?Initially, she had to be intermittent cathed x 1 after the , but she has been able to empty her bladder since that initial issue. Has a good appetite, is tolerating a general diet, is not yet passing flatus, and has not had a bowel movement.? Has scant amount of rubra lochia.? She is ambulating well. She is and reports it is going well the last couple of times. He is being supplememented colostrum to keep his blood sugars up.? OB - PN: Obj Exam Physical Exam: Vital signs: Temp Pulse Resp BP Pulse Ox O2 Del Method 98.1 F 101 H 12 93/65 98 Room Air 07/17/25 16:12 07/17/25 16:12 07/17/25 16:12 07/17/25 16:12 07/17/25 16:12 07/17/25 16:12 Narrative: GENERAL APPEARANCE:? normal affect, alert, no distress MOOD:? appropriate CHEST:? clear to auscultation HEART:? regular rate and rhythm ABDOMEN:? soft, non-tender the uterine fundus is At Umbilicus, Midline and is appropriate for the stage of recovery. PERINEUM:? mild edema of the perineum, there is a Perineal Laceration,?repair is well approximated with minimal edema and no erythema EXTREMITIES:? normal and minimal edema OB - PN: Obj Data Labs Labs: Laboratory Results - last 24 hr 07/16/25 07/17/25 19:06 05:45 WBC 11.86 H RBC 4.56 Hgb 11.9 L 9.5 L Hct 36.2 MCV 79 L MCH 26 MCHC 33 RDW Coeff of Kevin 14.1 Plt Count 188 Neut % (Auto) 76.3 H Lymph % (Auto) 16.3 L [place] % (Auto) 6.2 Eos % (Auto) 0.6 Baso % (Auto) 0.1 Neut # (Auto) 9.00 H Lymph # (Auto) 1.90 [place] # (Auto) 0.70 Eos # (Auto) 0.10 Baso # (Auto) 0.00 Abs Immat Gran (auto) 0.10 Imm/Tot Granulo (auto) 0.5 INR 0.93 APTT 27 Fibrinogen 543 H Blood Type A Positive Antibody Screen NEGATIVE OB - PN: A/P Delivery Assessment and Plan (1) care and examination of lactating mother: Status: Acute (2) Second degree perineal laceration: Status: Acute (3) Obesity affecting , antepartum: Status: Acute (4) History of hemorrhage: Status: Acute Plan Comments: PP day #1 Routine care May see as desired Anticipate discharge 07/17/2025
[2025-07-17 19:39] VITALS: BP 112/75; PULSE 108; RESP 18; O2SAT 98
[2025-07-18] MEDS: IBUPROFEN 600 MG TABLET PO ×2 (00:21→10:57)
[2025-07-18 03:07] VITALS: BP 89/53; PULSE 83; RESP 20; O2SAT 99
[2025-07-18 03:36] VITALS: BP 94/60; TEMP 36.1
--- NOTE | 2025-07-18 08:08 | P.DS_ITS ---
DS: Providers Provider Time Seen by Provider: 08:00 Date Seen: 07/18/25 Date of admission: 07/16/25 18:59 Primary care physician: Not a Local Provider Admitting Clinician: Bee Hussein CNM Attending Physician on discharge: Debbie Hua CNM Date of Discharge: 07/18/25 DS: Diagnosis Discharge Diagnosis (1) care and examination of lactating mother: Status: Acute (2) Second degree perineal laceration: Status: Acute (3) Anemia: Status: Acute Exam Narrative: Exam Narrative: Constitutional: no acute distress Psychiatric: alert and oriented, stable mood Cardiovascular: regular HR and rhythm Respiratory: regular breathing effort, lung sound clear to auscultation Extremities: full sensation and mobility, no edema Abdomen: fundus 1cm below umbilicus, firm. appropriate for stage of healing Perineum: 2nd degree tear with sutures approximated, no swelling, minimal bruising Breasts: declined exam Const: Vital Signs, click to edit/add: Vital Signs - 24 hr 07/17/25 08:31 07/17/25 11:56 07/17/25 16:12 Temperature 98.1 F 98.1 F 98.1 F Pulse Rate [Pulse Oximeter] 100 90 101 H Respiratory Rate 12 12 12 Blood Pressure [Ri ght Arm] 112/81 107/74 93/65 Pulse Oximetry 97 97 98 Oxygen Delivery Me thod Room Air Room Air Room Air 07/17/25 19:39 07/18/25 03:07 07/18/25 03:36 Temperature 97 F L Pulse Rate [Pulse Oximeter] 108 H 83 Respiratory Rate 18 20 Blood Pressure [Ri ght Arm] 112/75 89/53 L 94/60 Pulse Oximetry 98 99 Oxygen Delivery Me thod Room Air Room Air Documenting provider has reviewed patient's vital signs: yes OB - DS: Summary Hospital Course Hospital Course: Bertha is a 29 y.o. G 2 P 2 who was admitted to L & D for spontaneous labor. ?She had a NVD that was complicated by 50 second shoulder dystocia relieved with position changes. The patient feels well. ?The pain is well controlled with current medications.?She is breast feeding and reports things are going well and requests support as had trouble first child. RN and nurse will assist today. the patient has done well.? Vitals have been stable.? She has remained afebrile.? Has a good appetite, is tolerating a general diet. ?She is voiding without difficulty.? She is not yet passing gas and has not had a bowel movement.? She is ambulating and denies any dizziness.? Has small amount of rubra lochia. Problems: QBL 843 Plan: Routine visit. Follow up at 2 and 6 weeks . support through [place] and recommend Baby Talk classes Ferrous Sulfate 325mg daily HANNY Kahn I, Debbie Hua, UNIFORM ATTENDANT, CNM, was present for visit and have reviewed and agree with documentation by the Certified Nurse Midwifery Student.? Peripartum Data delivery method: Vaginal Laceration description: Perineal - 2nd Degree Episiotomy description: None complications: none [place] Infant Gender: Male Discharge Plan: Home Status at Discharge Functional status at discharge: independent ambulation Overall status at discharge: patient is progressing back to baseline Time Spent with Patient Time attestation: Total time spent providing and/or coordinating discharge services: Time spent: Less than 30 minutes Discharge Plan Discharge Disposition: Home, Self-Care Date of Admission: 07/16/25 18:59 Attending Provider on Discharge: Debbie Hua Primary Care Provider: Provider,Not a Local Condition: Stable Anticipated Discharge Date/Time: 07/18/25 14:32 Discharge Medications: New ferrous sulfate 325 mg (65 mg iron) tablet 325 mg PO Q OTHER DAY Qty: 90 0RF Continued Classic 28 mg iron- 800 mcg tablet 1 tab PO DAILY ferrous sulfate [Feosol] 325 mg (65 mg iron) tablet 325 mg PO DAILY Discontinued aspirin [Adult Low Dose Aspirin] 81 mg tablet,delayed release (DR/EC) 81 mg PO QDAY Discharge Orders: Discharge Order (Routine); Ordered 07/18/25 Ordered By: Debbie Hua Patient Education: OB Over the Counter Medication Information, OB Vaginal/Breast Feeding Additional Instructions: Discharge instructions were reviewed with the patient including signs and symptoms of infection and home going medications Nothing vaginally for 6 weeks: no tampons or intercourse Do not drive while taking narcotic pain medication(s) Off Work or School for 8 weeks Symptoms to report to doctor: * Bleeding that saturates more than one pad per hour * Passing clots larger than the size of a golf ball * Pain not relieved by prescribed medication * Fever above 100.4 degrees Fahrenheit * A foul vaginal odor * Difficulty in emotions, mood, and functions * Thoughts of hurting yourself and/or * Painful, reddened area in your breast * Any drainage, redness, or tenderness in your IV/epidural site * Severe headache that doesn't improve after taking medications * Changes in vision, including temporary loss of vision, blurred vision, and/or light sensitivity * Upper abdominal pain (usually under ribs on the right side) * Decrease in urination or painful, frequent urinating * Chest pain * Shortness of breath * Tenderness or pain with redness and/swelling in the calf(s) of your leg 2-week visit: discuss feeding concerns, review control options and screen for anxiety/depression. 6-week visit for an annual exam. consultation services are available to all mothers and babies for the first year after delivery.? To make an appointment, please call [phone]. Activity Level: Activity as Tolerated and No strenuous activity Discharge Diet: Regular Follow Up Appointments: [facility] [Provider Group] Provider,Not a Local [Primary Care Provider, Family Practice] Forms: [facility] Bel[facility]ings, [facility] Info Instructions
[2025-07-18 10:54] VITALS: BP 104/72; PULSE 94; RESP 16; TEMP 36.9; O2SAT 97
[2025-07-18] MEDS: DOCUSATE SODIUM 100 MG CAPSULE PO (10:57)
== END 2025-07-18 16:23 | disposition home or self-care (01) | DRG 807 ==
LOC: OB OUT 19:00 → OB 19:00
PROVIDERS: Admitting Provider Midwife; Visit Provider Midwife
DX: O66.0 Obstructed labor due to shoulder dystocia (principal); Z37.0 Single live birth; O70.1 Second degree perineal laceration during delivery; O36.63X0 Maternal care for excessive fetal growth, third trimester, not applicable or unspecified; O99.214 Obesity complicating childbirth; E66.9 Obesity, unspecified; O90.81 Anemia of the puerperium; D64.9 Anemia, unspecified; Z3A.40 40 weeks gestation of pregnancy
CPT/HCPCS: 36415; 85018; 85025; 85384; 85610; 85730; 86592; 86850; 86900; 86901; A9270; J2003; J2210; J3010; J7120

== ENCOUNTER 2025-07-21 12:22 | Outpatient (CLI) | payer OTHER, SELFPAY ==
--- NOTE | 2025-07-21 12:24 | W.PM.LAC.MC ---
Consult Note - Mom Date of Visit Date of visit: 07/21/25 Reason for consultation: Assistance Needed and Infant Weight Concern Visit Code: Visit Patient's Information Phone number: [phone] : 2 Para: 2 Allergies No Known Drug Allergies Allergy (Verified 07/14/25 09:49) Mother's Medical History: Medical History (Updated 07/18/25 @ 08:10 by Belem Medina) hemorrhage ?O72.1 - Other immediate hemorrhage (ICD-10) Endometriosis ?N80.9 - Endometriosis, unspecified (ICD-10) Chronic constipation ?K59.09 - Other constipation (ICD-10) Vaginal delivery ?O80 - Encounter for full-term uncomplicated delivery (ICD-10) Pilonidal cyst with abscess ?L05.01 - Pilonidal cyst with abscess (ICD-10) Delivery Information Delivery type: Vaginal Gestational Age: 40+3 Gestational Weight For Age: LGA Weight: 5.075 kg Discharge Weight: 4.79 kg Percentage weight loss: 5.6 Baby's Information Baby's Age at Visit: 5 days Baby's Provider or Clinic: [facility] Jaundice: Yes Past Experience Past Experience: Yes (attempted, not successful, stopped at 2 weeks) Current Frequency of Day Feedings: every 2.5-3 hours Frequency of Night Feedings: same Both Breasts: Yes Suck: strong Latch: on and off the breast repeatedly Length of Time: 10-15 min ea side for a good feeding, sometimes just 5 min ea side Goals: as long as possible Pumping Pumping: Yes Quantity Pumped: about 1oz; have pumped a few times Supplementing EBM Supplement: Yes Formula Supplement: Yes (takes 1 oz after BF attempts) Baby Elimination Number of Wet Diapers a Day: ea feeding Number of BM a Day: a few small ea day, yellow in color Breast/Nipple Condition Breast Information: Breasts are symmetrical with rounded lower quadrants, intramammary distance is less than 1.5 inches. No erythema. Nipples are supple, everted prior to feeding. Nipples measure 15mm bilaterally; recommend flange size of 17-19mm for pumping. Began to feel her milk coming in yesterday generation engineer. Breast Shape: Pendulous Engorgement: No Maternal Nipple Condition - Left: Short Maternal Nipple Condition - Right: Short Sore Nipples: No Interventions for Sore Nipples: Lansinoh/Nipple Cream Baby Assessment Skin: Normal and Yellow (face and chest) Tongue/frenulum: Restricted mid-range Palate: Average Lips: Relaxed and Symmetrical Jaw Alignment: Receding (slight) Mucosa: [place], moist Onsite Observation Pre-Feed weight: 4.58 kg (down 83 gm from yesterday; 9.8% weight loss today) Post-Feed weight: 4.61 kg Milk Transferred (mL): 30 Position: Football Attachment/latch-on achieved: With difficulty (challenging to get baby to open mouth wide enough for deep latch) Suck pattern: Suck burst and normal rest Swallow: Audible, consistent Behavior following feed: Alert, content Pre-Nursing Left Nipple: Within Normal Limits Pre-Nursing Right Nipple: Within Normal Limits Post-Nursing Left Nipple: Within Normal Limits Post-Nursing Right Nipple: Within Normal Limits Assessments/Interventions Assessments/Interventions: Neela had fed 1.5 hours prior to this visit so mom wasn't sure if he would feed well. Neela latched to mom's LEFT breast, latched on about the 3rd try, needed help getting a deep latch and stayed nursing for 10 minutes. Transferred 16 ml of milk and then wouldn't relatch to that breast Neela then latched to mom's RIGHT breast, latched more easily and deeply and nursed for another 5 minutes. Transferred 14 ml of milk. Of note, when neela was nursing on mom's right side, her left breast was dripping milk so more was available for baby Total transferred was 30 ml Neela would not relatch to either breast and suckle; just sit with breast in his mouth. Offered a bottle of formula (Similac per mom's choice); took 12 ml and then stopped. Had one choking/coughing episode during feeding; mom says this does happen with bottle feeds but not breastfeedings so far. Worked with mom/taught asymmetrical latch technique for a wide, deep latch and mom reports increased comfort with this and she noticed more swallowing by baby during feeding. Education provided: Early feeding cues to maximize timing of latching, Asymmetric latch technique for wide/deep latch to increase milk, Transfer for baby and increase comfort for mom, Supply/demand nature of milk supply, Need for frequent stimulation/milk removal and Pumping for milk management Feeding Plan: Breastfeed for 10-15 on each breast, listening for active swallowing Pump both breasts for: 10-15 minutes after each feeding to build supply and have her EBM for supplement; pump a full 20 minutes if pumping instead of . Pump settings reviewed. Feed baby 1-2 oz after BFing; 2.5-3 oz if just bottle feeding based on age, weight and weight loss. Use a syringe/feeding tube, cup, or bottle for feedings based on preference-using paced bottle feeding Have Even Mahendra bottles and Dr. Biggs bottles Rest, and repeat every 2-3 hours, watch for early feeding cues Try skin to skin to increase milk production Guppy pose discussed to help decrease tension in tongue/jaw to encourage a more wide open mouth for deeper latch Suck training tug of war to help get tongue down for feedings Jaw massage prior to feedings as well Follow-Up Suggested follow up: Appointment in 1-3 days (follow up in 4 days; call with questions as needed) Time Spent Time spent with patient (min): 90 (reviewing EMR and face to face with mom and infant) Meds Home Medications and Allergies Home Medications ?Medication ?Instructions ?Recorded ?Confirmed ?Type vits no.126-ferrous fum 1 tab PO DAILY 01/07/25 07/16/25 History 28 mg iron-folic acid 800 mcg tablet (Classic ) ferrous sulfate 325 mg (65 mg 325 mg PO DAILY 07/16/25 07/16/25 History iron) tablet (Feosol) ferrous sulfate 325 mg (65 mg 325 mg PO Q OTHER DAY #90 tabs 07/18/25 Rx iron) tablet Allergies Allergy/AdvReac Type Severity Reaction Status Date / Time No Known Drug Allergies Allergy Verified 07/14/25 09:49
== END 2025-07-21 12:23 | disposition home or self-care (01) ==
LOC: OB LAC 12:23
PROVIDERS: Visit Provider Advanced Practice Midwife
DX: Z39.1 Encounter for care and examination of lactating mother (principal)
CPT/HCPCS: G0463

== ENCOUNTER 2025-08-03 10:02 | Outpatient (CLI) | payer OTHER, SELFPAY | END 2025-08-03 10:03 | disposition home or self-care (01) | LOC: NFLDREF 08-08 14:03 | PROVIDERS: Visit Provider Physician Assistant Medical | DX: R35.0 Frequency of micturition (principal); N30.01 Acute cystitis with hematuria | CPT/HCPCS: 87086 ==

== ENCOUNTER 2025-08-29 13:33 | Outpatient (CLI) | payer OTHER, SELFPAY ==
[2025-09-01 06:02] LABS: HPV Source Cervical
[2025-09-02 13:19] LABS: Pap Test Digital Imaging Done
== END 2025-08-29 13:34 | disposition home or self-care (01) ==
PROVIDERS: Visit Provider Advanced Practice Midwife
DX: Z12.4 Encounter for screening for malignant neoplasm of cervix (principal)
CPT/HCPCS: 87624; 87625; 88141; 88142; 88175